=== PATIENT | male | born 1990 | race African-American/Black ===

== ENCOUNTER 2016-03-24 21:17 | Inpatient (IN) | payer OTHER ==
[2016-03-24] MEDS ORDERED: ceFAZolin 2 GM PREMIX 50 ML ONE (21:20)
[2016-03-24] MEDS ORDERED: DIPHTH/TETANUS/ACEL PERTUSSIS (BOOSTER) 0.5 ML VIAL/PFS IM ONE (21:21)
[2016-03-24 21:25] VITALS: O2SAT 100
[2016-03-24] MEDS ORDERED: ONDANSETRON HCL 4 MG/2 ML VIAL ONE (21:27)
[2016-03-24] MEDS ORDERED: MORPHINE SULFATE 8 MG/ML INJ ONE (21:27)
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
[2016-03-24 21:46] LABS: AUTOMATED NEUTROPHIL # 5.7 TH/MM3 (1.8-7.7); BASOPHIL % 0.1 % (0.0-2.0); EOSINOPHIL # 0.1 TH/MM3 (0-0.4); EOSINOPHIL % 0.9 % (0.0-4.0); HEMATOCRIT 41.8 % (39.0-51.0); HEMO FLAGS DIFF FINAL; I-STAT POTASSIUM 3.2 MMOL/L (3.5-4.9); I-STAT SODIUM 142 MMOL/L (138-146); LYMPH % 34.3 % (9.0-44.0); LYMPHOCYTE # 3.3 TH/MM3 (1.0-4.8); MEAN CELL VOLUME 87.9 FL (80.0-100.0); MONO % 5.7 % (0.0-8.0); PLATELET COUNT 209 TH/MM3 (150-450); RED BLOOD COUNT 4.75 MIL/MM3 (4.50-5.90); RED CELL DISTRIBUTION WIDTH 13.4 % (11.6-17.2); WHITE BLOOD COUNT 9.6 TH/MM3 (4.0-11.0)
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
[2016-03-24] MEDS ORDERED: IOHEXOL 350 MG/ML 10 ML VIAL (for RAD DIAG) IV ONE (21:59)
[2016-03-24] MEDS ORDERED: ACETAMINOPHEN/HYDROcodone 325 MG/5 MG TAB PO PRN (22:00)
[2016-03-24] MEDS ORDERED: CHLORHEXIDINE GLUCONATE 2 % 1 PACK (2 CLOTHS) TOP PRN (22:00)
[2016-03-24] MEDS ORDERED: ONDANSETRON HCL 4 MG/2 ML VIAL IV PRN (22:00)
[2016-03-24] MEDS ORDERED: PANTOPRAZOLE SODIUM 40 MG VIAL IVP SCH (22:00)
[2016-03-24] MEDS ORDERED: MISCELLANEOUS NURSING INFORMATION XX SCH (22:00)
[2016-03-24] MEDS ORDERED: ENALAPRILAT 1.25 MG/ML VIAL IV PRN (22:00)
[2016-03-24] MEDS ORDERED: SODIUM CHLORIDE 0.9% FLUSH 5 ML FLUSH IVF PRN (22:00)
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
[2016-03-24] MEDS ORDERED: XANA2TAB2 PO (22:01)
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
[2016-03-24 22:15] VITALS: BP 144/70; PULSE 78; RESP 18; O2SAT 99
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
[2016-03-24 22:34] LABS: APTT (PATIENT) 25.8 SEC (24.3-30.1); PROTHROMBIN TIME - PATIENT 11.3 SEC (9.8-11.6)
[2016-03-24] MEDS ORDERED: LIDOCAINE 2%/EPINEPHrine 1:100,000 50ML MDV ONE (22:48)
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
[2016-03-24] MEDS: DOCUSATE SODIUM 100 MG CAP PO SCH (23:47)
[2016-03-24] MEDS: SODIUM CHLOR 0.9% 1000 ML INJ 1,000 ML IV SCH (23:47)
[2016-03-24] MEDS: BACITRACIN TOP OINT 15 GM TUBE TOP SCH (23:47)
[2016-03-25] MEDS: ACETAMINOPHEN/HYDROcodone 325 MG/5 MG TAB PO PRN ×3 (00:56→12:36)
[2016-03-25] MEDS: MORPHINE SULFATE 4 MG/ML INJ IV PRN ×2 (00:56→12:13)
[2016-03-25 01:00] VITALS: BP 131/69; PULSE 101; RESP 17; TEMP 97; O2SAT 100
[2016-03-25 04:00] VITALS: BP 101/50; PULSE 78; RESP 16; TEMP 98.7; O2SAT 97
[2016-03-25] MEDS ORDERED: CHLORHEXIDINE GLUCONATE 2 % 1 PACK (2 CLOTHS) TOP SCH (04:00)
[2016-03-25 05:59] LABS: BICARBONATE 28.7 MEQ/L (21.0-32.0); POTASSIUM 3.4 MEQ/L (3.5-5.1)
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
[2016-03-25] MEDS: DOCUSATE SODIUM 100 MG CAP PO SCH (08:34)
[2016-03-25] MEDS ORDERED: POTASSIUM CHLORIDE 20 MEQ CONTROLLED RELEASE TAB PO ONE (10:00)
[2016-03-25 12:00] VITALS: BP 173/97; PULSE 70; RESP 18; TEMP 98.7; O2SAT 100
[2016-03-25] MEDS: SODIUM CHLOR 0.9% 1000 ML INJ 1,000 ML IV SCH ×2 (12:12→18:00)
[2016-03-25] MEDS: BACITRACIN TOP OINT 15 GM TUBE TOP SCH (12:13)
[2016-03-25] MEDS ORDERED: CEPH500C PO (13:22)
[2016-03-25] MEDS ORDERED: CEPHALEXIN MONOHYDRATE 500 MG CAP PO SCH (14:00)
[2016-03-25] MEDS ORDERED: PERC5TAB12 PO (15:01)
[2016-03-25] MEDS ORDERED: oxyCODONE/ACETAMINOPHEN 5 MG/325 MG TAB PO PRN (15:30)
[2016-03-25 16:00] VITALS: BP 132/69; PULSE 90; RESP 18; TEMP 99.4; O2SAT 98
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
== END 2016-03-25 18:40 | disposition home or self-care (01) | DRG 605 ==
LOC: NEPI 21:17 → NEDA 22:00 → EDBD 22:01 → NEDA 22:01 → UNDOADMOB 22:01 → OBSVTOIN 22:04 → N06B 03-25 00:32 → NEDA 03-25 00:32 → UNDODISOB 03-25 18:40
PROVIDERS: ADMIT Surgery; ATTEND Surgery
PROC: 0HC1XZZ Extirpation of Matter from Face Skin, External Approach (ICD-10-PCS; principal; 2016-03-24)
PROC: 0HQ1XZZ Repair Face Skin, External Approach (ICD-10-PCS; 2016-03-24)
DX: S01.422A Laceration with foreign body of left cheek and temporomandibular area, initial encounter (principal); F32.9 Major depressive disorder, single episode, unspecified; S40.212A Abrasion of left shoulder, initial encounter; S01.81XA Laceration without foreign body of other part of head, initial encounter; V48.5XXA Car driver injured in noncollision transport accident in traffic accident, initial encounter; Y92.410 Unspecified street and highway as the place of occurrence of the external cause; Y93.89 Activity, other specified; S00.91XA Abrasion of unspecified part of head, initial encounter; Z83.3 Family history of diabetes mellitus
CPT/HCPCS: 70450; 70486; 71010; 71260; 72125; 72128; 72131; 72170; 73560; 74177; 80048; 80320; 82435; 82565; 82947; 84132; 84295; 84520; 85025; 85610; 85730; 86850; 86900; 86901; 90471; 90715; 94150; 96374; 96375; 99291; C9113; G0390; J0690; J2270; J2405; J7030; Q9967